=== PATIENT | female | born 1940 | race Caucasian/White ===

== ENCOUNTER 2018-05-23 09:17 | Emergency (ER) | payer MEDICARE ==
[~2018-05-23] VITALS: Ht 165.1 cm; Wt 59.0 kg
[~2018-05-23 09:17] MED LIST: ALBU8HFA2 INH; ALBU90OI6 INH; ALBU90OI61 INH; AZIT250 PO; AZIT500 PO; Amoxicillin500 MG PO; Ativan1 MG SL; CALCAVITD PO; CODGUAEL PO; FLUSAL2505 IH; GUAI600T33 PO; HYDACE5 PO; MULVITMINF PO; OMEP40CA12 PO; PRED20 PO; TIOT18 IH; VALS80 PO
[2018-05-23] MEDS ORDERED: LOSA50 PO (09:34)
[2018-05-23] MEDS ORDERED: FLUT1DIS5 INH (09:35)
[2018-05-23 10:36] LABS: BASOPHILS ABSOLUTE AUTO 0.03 K/mm3 (0.00-0.23); BASOPHILS PERCENT AUTO 1 % (0-2); EOSINOPHILS ABSOLUTE AUTO 0.14 K/mm3 (0.00-0.68); EOSINOPHILS PERCENT AUTO 2 % (0-6); Hematocrit 33.8 % (33.0-51.0); Hemoglobin 11.2 g/dL (11.5-16.0); IMMATURE GRAN ABSOLUTE AUTO 0.02 K/mm3 (0.00-0.10); IMMATURE GRAN PERCENT AUTO 0 % (0-1); LYMPHOCYTES ABSOLUTE AUTO 0.97 K/mm3 (0.84-5.20); LYMPHOCYTES PERCENT AUTO 15 % (21-46); MONOCYTES ABSOLUTE AUTO 1.15 K/mm3 (0.16-1.47); MONOCYTES PERCENT AUTO 17 % (4-13); Mean Corpuscular HGB 30.9 pg (26.0-34.0); Mean Corpuscular HGB Conc 33.1 g/dL (31.5-36.5); Mean Corpuscular Volume 93 fL (80-100); Mean Platelet Volume 10.1 fL (9.1-12.4); NEUTROPHILS ABSOLUTE AUTO 4.29 K/mm3 (1.96-9.15); NEUTROPHILS PERCENT AUTO 65 % (41-73); Platelet Count 247 K/mm3 (150-400); RDW Coefficient Variation 12.4 % (11.7-14.2); Red Blood Cell Count 3.62 M/mm3 (3.80-5.20)
[2018-05-23 10:41] LABS: Alanine Aminotransfer (ALT/SGP 22 U/L (12-78); Albumin, Blood 3.3 g/dL (3.4-5.0); Albumin/Globulin Ratio 0.8 (0.8-1.8); Alk Phos 105 U/L (50-136); Anion Gap 8 mmol/L (6-16); Aspartate Aminotrans (AST/SGOT 15 U/L (12-37); Bilirubin, Total 0.6 mg/dL (0.1-1.0); Blood Urea Nitrogen 7 mg/dL (8-24); Bun/Creatinine Ratio 15.2 (12.0-20.0); CO2, Blood 27 mmol/L (21-32); Calcium, Blood 8.9 mg/dL (8.5-10.1); Chloride, Blood 98 mmol/L (98-108); Creatinine, Blood 0.46 mg/dL (0.40-1.00); Globulin, Blood 4.3 g/dL (2.2-4.0); Glomerular Filtration Rate >60 (60-); Glucose, Blood 100 mg/dL (70-99); Sodium, Blood 133 mmol/L (136-145); Total Protein, Blood 7.6 g/dL (6.4-8.2)
[2018-05-23] MEDS ORDERED: LEVO750 PO (12:24)
[2018-05-23] MEDS ORDERED: Prednisone20 MG PO (12:24)
[2018-06-02] MEDS ORDERED: Zithromax250 MG PO (12:33)
[2018-06-02] MEDS ORDERED: Prednisone20 MG PO ×2 (12:33→12:52)
== END 2018-05-23 12:39 | disposition home or self-care (01) ==
LOC: ER 09:17
PROVIDERS: Emergency Medicine
DX: J44.0 Chronic obstructive pulmonary disease with (acute) lower respiratory infection (principal); J18.9 Pneumonia, unspecified organism; J44.1 Chronic obstructive pulmonary disease with (acute) exacerbation; Z79.899 Other long term (current) drug therapy
CPT/HCPCS: 71046; 80053; 85025; 93005; 93010; 94640; 96374; 99284-25; J2930

== ENCOUNTER 2018-10-22 10:37 | Emergency (ER) | payer OTHER, MEDICARE ==
[~2018-10-22] VITALS: Ht 165.1 cm; Wt 59.0 kg
[~2018-10-22 10:37] MED LIST changes: +FLUT1DIS5 INH; +LEVO750 PO; +LOSA50 PO; +Prednisone20 MG PO; +Zithromax250 MG PO
[2018-10-22] MEDS ORDERED: Norco 5-325 Ta1 EACH PO (11:51)
== END 2018-10-22 12:04 | disposition home or self-care (01) ==
LOC: ER 10:37
DX: S20.212A Contusion of left front wall of thorax, initial encounter (principal); V49.9XXA Car occupant (driver) (passenger) injured in unspecified traffic accident, initial encounter; Z79.899 Other long term (current) drug therapy; Z79.52 Long term (current) use of systemic steroids; J44.9 Chronic obstructive pulmonary disease, unspecified; I48.91 Unspecified atrial fibrillation
CPT/HCPCS: 71046; 99283-25; A9270-GY

== ENCOUNTER → 2020-07-02 | Outpatient (CLI) | payer MEDICARE ==
[~2020-07-02] MED LIST changes: +ALENDRONATE SOD70 MG PO; -CALCAVITD PO; +CALCIUM 500 +1 EAC4 PO; +CLON.5 PO; +ESCI10 PO; +FOSAMAX70 MG PO; +Hair, Skin & N1 EACH PO; +IPRAT-ALBUT 0.5-3 ML INH; -MULVITMINF PO; +Norco 5-325 Ta1 EACH PO; +Prinivil10 MG PO; +WIXELA 250-501 EAC1 INH
== END | disposition home or self-care (01) ==
LOC: LAB SHORT 13:00 → LAB 13:00
DX: J44.1 Chronic obstructive pulmonary disease with (acute) exacerbation (principal)
CPT/HCPCS: 87070; 87077; 87186; 87205

== ENCOUNTER → 2020-09-17 | Outpatient (CLI) | payer MEDICARE | LOC: LAB SHORT 14:15 → LAB 14:15 | DX: R05 Cough (principal) | CPT/HCPCS: 87070; 87205 ==

== ENCOUNTER 2020-10-08 11:06 | Inpatient (IN) | payer MEDICARE ==
[~2020-10-08] VITALS: Ht 165.1 cm; Wt 56.7 kg
[~2020-10-08 11:06] MED LIST changes: -ALENDRONATE SOD70 MG PO; -CLON.5 PO; -ESCI10 PO; -FOSAMAX70 MG PO; -IPRAT-ALBUT 0.5-3 ML INH; -Prinivil10 MG PO; -WIXELA 250-501 EAC1 INH
[2020-10-08 11:33] LABS: BASOPHILS ABSOLUTE AUTO 0.02 K/mm3 (0.00-0.23); BASOPHILS PERCENT AUTO 0 % (0-2); EOSINOPHILS ABSOLUTE AUTO 0.05 K/mm3 (0.00-0.68); EOSINOPHILS PERCENT AUTO 1 % (0-6); Hematocrit 32.7 % (33.0-51.0); Hemoglobin 10.9 g/dL (11.5-16.0); IMMATURE GRAN ABSOLUTE AUTO 0.03 K/mm3 (0.00-0.10); IMMATURE GRAN PERCENT AUTO 0 % (0-1); LYMPHOCYTES ABSOLUTE AUTO 1.12 K/mm3 (0.84-5.20); LYMPHOCYTES PERCENT AUTO 15 % (21-46); MONOCYTES ABSOLUTE AUTO 1.03 K/mm3 (0.16-1.47); MONOCYTES PERCENT AUTO 14 % (4-13); Mean Corpuscular HGB 31.3 pg (26.0-34.0); Mean Corpuscular HGB Conc 33.3 g/dL (31.5-36.5); Mean Corpuscular Volume 94 fL (80-100); Mean Platelet Volume 9.7 fL (9.1-12.4); NEUTROPHILS ABSOLUTE AUTO 5.27 K/mm3 (1.96-9.15); NEUTROPHILS PERCENT AUTO 70 % (41-73); Platelet Count 256 K/mm3 (150-400); RDW Coefficient Variation 12.5 % (11.7-14.2); RDW Standard Deviation 43.3 fL (35.1-46.3); Red Blood Cell Count 3.48 M/mm3 (3.80-5.20); White Blood Cell Count 7.52 K/mm3 (4.00-11.30)
[2020-10-08 11:48] LABS: Alanine Aminotransfer (ALT/SGP 24 U/L (12-78); Albumin, Blood 3.1 g/dL (3.4-5.0); Albumin/Globulin Ratio 0.8 (0.8-1.8); Alk Phos 96 U/L (50-136); Anion Gap 6 mmol/L (6-16); Aspartate Aminotrans (AST/SGOT 17 U/L (12-37); Bilirubin, Total 0.4 mg/dL (0.1-1.0); Blood Urea Nitrogen 13 mg/dL (8-24); CO2, Blood 27 mmol/L (21-32); Chloride, Blood 101 mmol/L (98-108); Creatinine, Blood 0.46 mg/dL (0.40-1.00); Globulin, Blood 3.8 g/dL (2.2-4.0); Glomerular Filtration Rate >60 (60-); Glucose, Blood 107 mg/dL (70-99); Sodium, Blood 134 mmol/L (136-145); Total Protein, Blood 6.9 g/dL (6.4-8.2)
[2020-10-08] MEDS ORDERED: ESCI10 PO (12:29)
[2020-10-08] MEDS ORDERED: CLON.5 PO (12:29)
[2020-10-08] MEDS ORDERED: WIXELA 250-501 EAC1 INH (12:30)
[2020-10-08] MEDS ORDERED: Prinivil10 MG PO (12:30)
[2020-10-08] MEDS ORDERED: IPRAT-ALBUT 0.5-3 ML INH (12:31)
[2020-10-08] MEDS ORDERED: FOSAMAX70 MG PO (12:32)
[2020-10-08 13:45] LABS: Base Excess Venous 0.8 mmol/L; Bicarbonate Venous 24.4 mmol/L (24.0-30.0); PCO2 Venous 48.9 mmHg (38-42); PO2 Venous 49.3 mmHg (38-42); pH Blood Venous 7.34 (7.34-7.37)
--- NOTE | 2020-10-08 17:33 | NUR ---
Echocardiogram performed.
--- NOTE | 2020-10-08 23:53 | NUR ---
STATUS UPDATE THIS RN AND STEPHON OVIEDOA ATTEMPT TO PLACE PT ON BEDPAN, PT BECOMES DYSPNEIC AND GASPING FOR AIR, BRO PAYNE RN AT BEDSIDE, PT BACK ON BIPAP. PT STRUGGLES TO RECOVER, SATS DOWN TO 70% DURING PLACING PT ON BEDPAN WITH PT ON 5 L VIA NC. PT'S BREATHING APPEARS TIGHT, ON AUSCULTATION LITTLE MOVEMENT OF AIR IS HEARD. PT RECOVERS TO 90-94% ON BIPAP. SETTINGS 12/6 AT 40% O2. BACKUP RATE OF 12, CURRENTLY RR 23-28 BPM. SINUS TACH IN 110'S. HUGO RT CALLED TO BEDSIDE FOR TX. THIS RN ADMINS SCHEDULED IV STEROID PER ORDERS. THIS RN DISCUSSES WITH PT NEED FOR STRICT BEDREST AT THIS TIME. STEPHON OVIEDOA ASSIST THIS RN IN PLACING PT IN DEPENDS.
[2020-10-09 04:03] LABS: BASOPHILS PERCENT AUTO 0 % (0-2); EOSINOPHILS PERCENT AUTO 0 % (0-6); Hematocrit 33.1 % (33.0-51.0); Hemoglobin 11.2 g/dL (11.5-16.0); IMMATURE GRAN ABSOLUTE AUTO 0.01 K/mm3 (0.00-0.10); IMMATURE GRAN PERCENT AUTO 0 % (0-1); LYMPHOCYTES ABSOLUTE AUTO 0.47 K/mm3 (0.84-5.20); LYMPHOCYTES PERCENT AUTO 11 % (21-46); MONOCYTES ABSOLUTE AUTO 0.11 K/mm3 (0.16-1.47); MONOCYTES PERCENT AUTO 3 % (4-13); Mean Corpuscular HGB 31.4 pg (26.0-34.0); Mean Corpuscular HGB Conc 33.8 g/dL (31.5-36.5); Mean Corpuscular Volume 93 fL (80-100); Mean Platelet Volume 9.4 fL (9.1-12.4); NEUTROPHILS ABSOLUTE AUTO 3.71 K/mm3 (1.96-9.15); NEUTROPHILS PERCENT AUTO 86 % (41-73); Platelet Count 282 K/mm3 (150-400); RDW Coefficient Variation 12.7 % (11.7-14.2); RDW Standard Deviation 43.2 fL (35.1-46.3); Red Blood Cell Count 3.57 M/mm3 (3.80-5.20)
[2020-10-09 04:28] LABS: Alanine Aminotransfer (ALT/SGP 26 U/L (12-78); Albumin, Blood 3.1 g/dL (3.4-5.0); Albumin/Globulin Ratio 0.8 (0.8-1.8); Alk Phos 91 U/L (50-136); Anion Gap 6 mmol/L (6-16); Aspartate Aminotrans (AST/SGOT 15 U/L (12-37); Bilirubin, Total 0.4 mg/dL (0.1-1.0); Blood Urea Nitrogen 13 mg/dL (8-24); Bun/Creatinine Ratio 29.1 (12.0-20.0); CO2, Blood 28 mmol/L (21-32); Calcium, Blood 8.7 mg/dL (8.5-10.1); Chloride, Blood 99 mmol/L (98-108); Creatinine, Blood 0.45 mg/dL (0.40-1.00); Glomerular Filtration Rate >60 (60-); Glucose, Blood 159 mg/dL (70-99); Sodium, Blood 133 mmol/L (136-145); Total Protein, Blood 7.1 g/dL (6.4-8.2)
--- NOTE | 2020-10-09 05:59 | NUR ---
OFF BIPAP 0515 PT OFF BIPAP PER PT REQUESTS TO TRY NC INSTEAD, GIVEN MOIST SWAB AND SIPS OF WATER, SATS 87-89% ON 5 L VIA NC, WORK OF BREATHING IS LABORED. ACCESSORY MUSCLE USE, LS DIMINISHED T/O. THIS RN STANDS BY WHILE PT USES NC, BREATHING CONTINUES TO APPEAR LABORED. PT APPEARS UNCOMFORTABLE. THIS RN RECCOMENDS REPLACING BIPAP AT THIS TIME DUE TO PT WORK OF BREATHING, PT AGREEABLE. SATS BACK UP TO 93% FOLLOWING BIPAP PLACEMENT. RR 23-28 BPM.
--- NOTE | 2020-10-09 07:56 | NUR ---
SHIFT SUMMARY PT AOX4, BREATHING LABORED T/O SHIFT OFF BIPAP. SPO2 94-96% ON BIPAP /6 AT 40%. PT HELPED UP TO COMMODE ON BIPAP, TOLERATED FAIRLY WELL. ADJUSTED TO 100% WHILE PT IS UP AT COMMODE. SINUS TACH IN LOW 100'S ON TELE. DENIES CP. X2 ORAL SWABS AND SIPS OF WATER OFF BIPAP ON 5 L VIA NC. SATS 87-90% ON NC WHILE OFF BIPAP. IV SALINE LOCKED.
--- NOTE | 2020-10-09 11:02 | NUR ---
PT ALERT AND ORIENTED X4. SLOW TO RESPOND AT TIMES. ON BIPAP AT 12/6 AND 40% THIS AM. RESPIRATORY RATE RANGING FROM 24-38 O2 SATS RANGING FROM 94-95%. LUNGS SOUNDING DIMINSHED THROUGHOUT. ABLE TO TAKE BREAK ON BIPAP WHEN EATING BREAKFAST, TAKING MEDS AND SPEAKING WITH ON PHONE. WHEN ON BREAKS PT IS PLACED ON 5 L O2 AND SATS AT 92%. TELE SHOWING SINUS TACH WITH HR 100-110'S. DENIES CHEST PAIN/PRESSURE. VITAL SIGNS STABLE. BOWEL TONES HEARD. PT REPORTS HISTORY OF URINARY RETENTION, WILL CONTINUE TO MONITOR OUTPUT. DENIES PAIN. ABLE TO TAKE PILLS ONE AT A TIME WITH WATER. CALL LIGHT IN REACH. PT SPOKE WITH ON PHONE THIS MORNING. WILL CONTINUE TO MONITOR.
--- NOTE | 2020-10-09 13:15 | NUR ---
DR. VENTURA IN TO SEE PATIENT. NEW ORDERS FOR BIPAP BREAK AND ABG ONE HOUR POST BIPAP BREAK. BIPAP TAKEN OFF AT 1230. PT SATING AT 92% ON 6L O2. ABG ORDERS FOR 1330. WILL CALL DR. VENTURA WITH RESULTS. NOT MUCH OF AN APPETITE. UP TO BSC WITH 1 PERSON ASSIST ABLE TO VOID. WILL CONTINUE TO MONITOR. SPOKE WITH SARI ON PHONE WITH PATIENTS PERMISSION.
[2020-10-09 13:52] LABS: PCO2 Arterial 41.8 mmHg (35-45); PO2 Arterial 64.8 mmHg (80-100); pH Blood Arterial 7.43 (7.35-7.45)
--- NOTE | 2020-10-09 15:36 | NUR ---
DR. KEE IN TO SEE PATIENT. NEW ORDERS FOR SPUTUM CULTURE AND SPEECH THERAPY. WILL CONTINUE TO MONITOR RESPIRATORY STATUS AND USE BIPAP NEEDED.
--- NOTE | 2020-10-09 17:26 | NUR ---
SHIFT SUMMARY: PT REMAINS ALERT AND ORIENTED. ONE EPISODE THIS SHIFT OF CONFUSION WHEN PATIENT WAS DREAMING. REMAINS ON 5-6L 02 SATING AT 92 WHEN AWAKE. CURRENTLY PATIENT SLEEPING AND SATING AT 94%. DESATS QUICKLY WITH MOVEMENT ABLE TO RECOVER WITHIN 5 MIN. PT STATES SHE FEELS NERVOUS WHEN MOVING. UP TO BSC WITH ASSISTANCE. USING WALKER AND GAIT BELT FOR SAFETY. HX OF URINARY RETENTION. ONE EPISODE OF OUPUT THIS SHIFT. UP TO BSC A SECOND TIME WITH NO OUTPUT. BLADDERSCAN ORDERED PRN AND STRAIGHT CATH FOR 500 OR ABOVE. WILL CONTINUE TO MONITOR URINARY OUTPUT AND BLADDER SCAN. NOT MUCH OF AN APPETITE. BIPAP ON STANDY. USING BIPAP ON AND OFF PATIENT NEEDS. RIGHT HAND IV SALINE LOCKED AND FLUSHING WELL. TELE REMAINS SINUS TACH WITH HR 110'S. DENIES CHEST PAIN/PRESSURE. VITAL SIGNS REMAIN STABLE. BP SLIGHTLY ELEVATED. WILL CONTINUE TO MONITOR AND REPORT OFF.
--- NOTE | 2020-10-09 19:28 | NUR ---
UPDATE: PT COMPLAINING OF ACID RELUX SYMPTOMS. DENIES NEED FOR MEDICATION. NEW ORDERS FOR MAALOX AND PEPCID IF NEEDED. CONCERN FOR ASPIRATION. PATIENT WILL BE NPO UNTIL SPEECH CAN ASSESS TOMORROW. REPORTED OFF TO ONCOMING RN.
--- NOTE | 2020-10-10 07:59 | NUR ---
SUMMARY PT FORGETFUL TONIGHT FIDGETING,PULLING AT LINES, REMOVES 02, BIOX AND IV TUBING.WAS INITIALLY ON AND OFF BIPAP VS N/C HOWEVER BEST FIGURED OUT THAT ASSISTS IN PT COMFORT IS HI FLOW N/C WITH PRONGS PLACED IN MOUTH PT IS MOUTH BREATHER.O2 TURNED UP WHEN OOB FOR BSC, BUT SATS NOT GOING LOW 70 WHICH HAD BEEN PRIOR AND PTS RALLY IS MUCH QUICKER AND MAINTAINING BETWEEN 88-95% WHEN BACK IN BED AT 5-7 L HIFLOW.
--- NOTE | 2020-10-10 13:46 | NUR ---
CARE COORDINATION REFERRAL - ADMIT: 10/08/20 DISCHARGE: DX: SOB CC: [facility] CALL: RESIDENCE: HOME WITH SPOUSE CAREGIVER: DANTE CARRIZALES, SPOUSE / PARTNER, [phone] DX: CHRONIC LUNG DISEASE, HTN, GERD, CEREBRAL ATHEROSCLEROSIS, SEE LIST DME: NEBULIZER, HOME O2 CCM: NONE HOME HEALTH: NONE SUMMARY: 10/10/20- PER CHART REVIEW WITH DR. VENTURA, PT IS NOT MEDICALLY STABLE TO D/C AT THIS TIME. PT SAW THE PT AND THEY ARE RECOMMENDING SNF OR HOME HEALTH IF THE HOUSE HOLD CRITERIA IS MET. PT IS DECONDITIONED AND IS REQUIRING 8L O2 AT THIS TIME. OT HAS ALSO BEEN ORDERED TO WORK WITH THE PT AND ALSO A PALLIATIVE CARE CONSULT.-SAI
--- NOTE | 2020-10-10 17:38 | NUR ---
SUMMARY PT REQUIREING 5 LITER OXYGEN AT REST, OXYGEN INCREASED TO 7 LITERS WITH ACTIVITY. LOOSE COUGH PRODUCTIVE OF MODERATE AMOUNTS GREEN SECRETIONS. PT REPORTS OVERALL IS FEELING BETTER TODAY THAN SHE WAS YESTERDAY. UP TO BEDSIDE COMMODE TO VOID. PT USING FLUTTER VALVE INDEPENDENTLY. PT SLIGHTLY TREMULOUS WHICH NSHE REPORTS IS FROM STEROIDS. PTS FAMILY IN TO VISIT THIS SHIFT AND PER PT THEY CAN ASSIST HER WITH NEEDS POST DISCHARGE
--- NOTE | 2020-10-11 02:40 | NUR ---
CALLED DR MARQUIS REGARDING ELEVATED BP'S WITH NO PRN. ORDER OF HYDRALAZINE Q6 ENTERED IN EMAR.
--- NOTE | 2020-10-11 06:17 | NUR ---
SHIFT SUMMARY PT IS ALERT AND ORIENTED. PT HAS HAD SOME HYPERTENSION. CALLED DR DUE TO PT NOT HAVING A PRN FOR HYPERTENSION. PT IS ON HIFLOW FROM 5-7L NC. THERE HAVE BEEN NO OTHER ACUTE CHANGES. PT'S LUNG SOUNDS SOUND COARSE WITH PRODUCTIVE COUGH. PT DENIES CHEST PAIN. PT IS UP TO BSC FOR 1 ASSIST.
--- NOTE | 2020-10-11 13:35 | NUR ---
DR. VENTURA AT BEDSIDE. DISCUSSED POC. NOTIFIED HIM PATIENT'S SPO2 DROPPED DOWN TO 78% WITH ACTIVITY BUT INCREASES BACK TO 90'S WHEN PATIENT IS TOLD TO TAKE SLOW BREATHS. PATIENT WAS ON 8L O2 VIA HIGH FLOW NC, DR. VENTURA TURNED O2 DOWN TO 5L. PATIENT STATES SHE WEARS UP TO 6L O2 AT HOME. DR. VENTURA ORDERED TRANSFER TO MEDICAL FLOOR WITHOUT TELE.
--- NOTE | 2020-10-11 17:30 | NUR ---
SHIFT SUMMARY: PATIENT A/OX3. ANXIETY AT TIMES. ON 5-9L O2 VIA HIGH FLOW NC. O2 REQUIREMENTS INCREASE WITH ACTIVITY. NO BM TODAY, STATES SHE STILL FEELS COMFORTABLE AND DOES NOT WANT TO TRY ANY BOWEL CARE AT THIS TIME. UP TO BS WITH 1 ASSIST. WORKED WITH PHYSICAL THERAPY TODAY. STATUS CHANGED AND TRANSFERRED TO MED FLOOR WITHOUT TELE. NOTIFIED PATIENT'S , SARI. SARI IS WORRIED ABOUT CARING FOR HER AT HOME HE IS IN A WHEELCHAIR HIMSELF. REPORT WAS GIVEN TO RN ON MEDICAL FLOOR.
--- NOTE | 2020-10-11 17:49 | NUR ---
PT TRASNFERRED TO ROOM 342 AT ABOUT 1730. THIS RN ASSUMED CARE AT THAT TIME. PT IS A/OX4, ANXIOUS WITH TRANSFER R/T SOB WITH EXERTION. PT ON 5L O2 NC WITH O2 AROUND 94%; BIOX IN PLACE. PT ORIENTED TO ROOM AND ASSISTED WITH CALLING TO UPDATE ON ROOM NUMBER. PT STATES SHE DOES NOT FEEL HUNGRY RIGHT NOW BUT MIGHT EAT DINNER LATER. DINNER TRAY AT BEDSIDE. PERSONAL BELONGINGS WITH PT FROM PCU. PT IN BED, HOB ELEVATED AT THIS TIME.
--- NOTE | 2020-10-11 19:29 | NUR ---
REPORT GIVEN TO KI MACK. PATIENT TRANSFERRED TO ROOM 342 AT 1730.
--- NOTE | 2020-10-12 04:16 | NUR ---
SHIFT SUMMARY NO ACUTE CHANGES TO REPORT THIS SHIFT. PT HAS RESTED MOST OF THE NIGHT AND HAS DENIED NEEDS. SATS ABOVE 95% ON 5L. PT HAS PRODUCTIVE COUGH WITH THICK SPUTUM. PT HAS DENIED PAIN OR NEEDS T/O SHIFT. 1 PA TO THE BATHROOM . ASSESSMENT UNCHANGED. BED IN LOWEST POSITION, CALL LIGHT WITHIN REACH.
--- NOTE | 2020-10-12 10:00 | NUR ---
Pt denies pain this morning. She is slightly forgetful, oriented X3. Up to the BSC with standby assist for IV lines. Frequent cough. Medications 1 at a time in applesauce. Will continue to monitor.
--- NOTE | 2020-10-12 18:40 | NUR ---
Shift Summary: Pt alert, oriented this shift. She is very low energy and appears chronically fatigued. She is somewhat grouchy at times. No new orders, pt using call light and up to BSC with 1 person assist. Will continue to monitor until oncoming RN.
--- NOTE | 2020-10-13 00:47 | NUR ---
10/12/20 2155 PT LYING IN BED, REPORTS SOB THAT INCREASES WITH EXERTION, ON O2 NC 10L HUMIDIFIED AT 93%. PRODUCTIVE COUGH-PER PT AND RT SPUTUM IS SMALL AMOUNT, WHITEISH YELLOWISH TANNISH. SLIGHT REDNESS ON BOTTOM THAT IS BLANCHABLE AND NOT OPEN. NO OTHER APPARENT SIGNS OF DISTRESS. CALL LIGHT IS IN REACH.
--- NOTE | 2020-10-13 04:12 | NUR ---
10/12/20 2257 GAVE PT COREG THAT WAS NEWLY ORDERED. NO APPARENT SIGNS OF DISTRESS. PT DENIES NEED FOR ANYTHING AT THIS TIME. CALL LIGHT IS IN REACH. 10/13/20 0000 PT LYING IN BED, EYES CLOSED. APPEARS TO BE RESTING. BREATHING IS EVEN, UNLABORED. NO APPARENT SIGNS OF DISTRESS. CALL LIGHT IS IN REACH.
--- NOTE | 2020-10-13 04:14 | NUR ---
0218 BLADDER SCAN DONE, POST VOID, 488. DISCUSSED WITH PT THE NEED TO DO A STRAIGHT CATH TO EMPTY HER BLADDER. PT DECIDED SHE WANTED TO TRY VOIDING AGAIN FIRST. SHE WAS ABLE TO VOID 125. THAT WOULD LEAVE HER WITH 363 IN HER BLADDER. THE PT AND I DECIDED WITH THAT AMOUNT IT WOULD PROBABLY BE OK TO WAIT AND CHECK ANOTHER BLADDER SCAN IN THE MORNING WITH DAY SHIFT AND NOT DO A STRAIGHT CATH AT THIS TIME. PT WAS VERY HAPPY NOT TO HAVE ONE DONE RIGHT NOW. NO OTHER APPARENT SIGNS OF DISTRESS. CALL LIGHT IS IN REACH.
--- NOTE | 2020-10-13 04:16 | NUR ---
PT LYING IN BED, EYES CLOSED, APPEARS TO BE RESTING. BREATHING IS EVEN, UNLABORED. NO APPARENT SIGNS OF DISTRESS. CALL LIGHT IS IN REACH.
--- NOTE | 2020-10-13 04:43 | NUR ---
PT IS AAO X 4, APPEARS VERY EXHAUSTED. ON 10L O2 NC HUMIDIFIED AT 93%. SOB THAT INCREASES WITH EXERTION. AT ONE POINT RT WAS GOING TO PUT HER ON HIFLOW O2, BUT THE PATIENT APPEARED TO BE DOING OK WITH WHAT SHE HAD ON SO RT AND I JUST CONTINUED TO MONITOR HER. PRODUCTIVE COUGH, SPUTUM IS SMALL AMOUNT THAT IS WHITEISH YELLOWISH TANNISH PER PT AND RT. BOTTOM IS SLIGHTLY RED BUT BLANCHABLE AND NOT OPEN. BLADDER SCAN POST VOID DONE AT 0218, IT WAS 488, PT WANTED TO TRY VOIDING AGAIN BEFORE DOING A STRAIGHT CATH, WAS ABLE TO VOID 125 LEAVING HER WITH 363 IN BLADDER, PT AND I DECIDED TO NOT STRAIGHT CATH AT THIS TIME AND WAIT TO SEE WHAT THE DAY SHIFT BLADDER SCAN SHOWS.
[2020-10-13 05:36] LABS: BASOPHILS ABSOLUTE AUTO 0.01 K/mm3 (0.00-0.23); BASOPHILS PERCENT AUTO 0 % (0-2); EOSINOPHILS PERCENT AUTO 0 % (0-6); Hematocrit 34.8 % (33.0-51.0); Hemoglobin 11.5 g/dL (11.5-16.0); IMMATURE GRAN ABSOLUTE AUTO 0.07 K/mm3 (0.00-0.10); IMMATURE GRAN PERCENT AUTO 1 % (0-1); LYMPHOCYTES ABSOLUTE AUTO 0.56 K/mm3 (0.84-5.20); LYMPHOCYTES PERCENT AUTO 8 % (21-46); MONOCYTES ABSOLUTE AUTO 0.49 K/mm3 (0.16-1.47); MONOCYTES PERCENT AUTO 7 % (4-13); Mean Corpuscular HGB 31.3 pg (26.0-34.0); Mean Corpuscular Volume 95 fL (80-100); Mean Platelet Volume 9.7 fL (9.1-12.4); NEUTROPHILS PERCENT AUTO 84 % (41-73); Platelet Count 323 K/mm3 (150-400); RDW Standard Deviation 44.9 fL (35.1-46.3); Red Blood Cell Count 3.67 M/mm3 (3.80-5.20); White Blood Cell Count 7.03 K/mm3 (4.00-11.30)
[2020-10-13 06:09] LABS: Alanine Aminotransfer (ALT/SGP 30 U/L (12-78); Albumin, Blood 3.2 g/dL (3.4-5.0); Albumin/Globulin Ratio 0.9 (0.8-1.8); Alk Phos 87 U/L (50-136); Anion Gap 5 mmol/L (6-16); Aspartate Aminotrans (AST/SGOT 13 U/L (12-37); Bilirubin, Total 0.6 mg/dL (0.1-1.0); Blood Urea Nitrogen 20 mg/dL (8-24); Bun/Creatinine Ratio 42.9 (12.0-20.0); CO2, Blood 31 mmol/L (21-32); Calcium, Blood 9.5 mg/dL (8.5-10.1); Chloride, Blood 103 mmol/L (98-108); Creatinine, Blood 0.47 mg/dL (0.40-1.00); Globulin, Blood 3.7 g/dL (2.2-4.0); Glomerular Filtration Rate >60 (60-); Glucose, Blood 121 mg/dL (70-99); Potassium, Blood 3.8 mmol/L (3.5-5.5); Sodium, Blood 139 mmol/L (136-145); Total Protein, Blood 6.9 g/dL (6.4-8.2)
--- NOTE | 2020-10-13 07:40 | NUR ---
PT LYING IN BED, AWAKE, NO APPARENT SIGNS OF DISTRESS. DENIES NEED FOR ANYTHING AT THIS TIME. CALL LIGHT IS IN REACH. NO OTHER CHANGES THIS SHIFT.
--- NOTE | 2020-10-13 10:41 | NUR ---
Pt seems very weak this AM, more than the previous day. She refused breakfast, took her meds one at a time in applesauce. RT placed her on Airvo this morning: escalation of care from [place] 6L during the night. Will continue to monitor. Reviewed with Dr. Boyd.
--- NOTE | 2020-10-13 18:06 | NUR ---
Shift Summary: Pt remained alert and oriented thoughout shift. at bedside this afternoon. Pt denies pain. No other concerns. Will report to oncoming RN
--- NOTE | 2020-10-14 06:19 | NUR ---
SHIFT SUMMARY: PATIENT HAS ONLY BEEN ABL TO VOID 75ML OF URINE THIS SHIFT. BLADDER SCAN NOW SHOWS 525 ML PVR, VOIDED 25 ML. PATIENT AGREES TO STRAIGHT CATH.
--- NOTE | 2020-10-14 06:43 | NUR ---
: STRAIGHT CATHED FOR 650 ML OF YOSELIN URINE. TOLERATED WELL.
--- NOTE | 2020-10-14 13:49 | NUR ---
Met pt.lying in bed resting she reports doing fine encouraged pt. and prayed for her.
--- NOTE | 2020-10-14 17:23 | NUR ---
10/14/20- packet created and sent to [facility] for review. Spoke with [facility] and she reports that they are not able to take the pt with her current high needs for O2. They would be willing to take the pt once her O2 needs are at or below 5L. They asked that we hold her packet and send back for review after she has completed more of her antibiotics to see if this improves her oxygen. -chris
--- NOTE | 2020-10-14 18:12 | NUR ---
SHIFT SUMMARY PT A&OX4, ABLE TO MAKE NEEDS KNOWN, IRRITABLE AT TIMES. NO C/O PAIN OR ANY DISCOMFORT THIS SHIFT. PT HAS POOR PO AND FLUID INTAKE, ENCOURAGED TO INCREASE INTAKE SEVERAL TIMES THIS SHIFT. NO RECORDED VOID THIS SHIFT, PT DENIES ANY DYSURIA OR URGE. BLADDER SCAN ORDERED RESULT= 123 ML. PT CONTINUES ON 6LPM O2 VIA NC, SATS >92%. BED AT LOWEST POSITION. CALL LIGHT WITHIN REACH.
--- NOTE | 2020-10-14 18:21 | NUR ---
Spiritual care note: Ángel appeared quite sleepy and frail. She could not stay awake more than a few moments. She nodded 'yes' to prayer. Provided prayer and will remain available to pt and family.
--- NOTE | 2020-10-15 07:35 | NUR ---
SHIFT SUMMARY: PATIENT IS A&OX4, WITHDRAWL, NEEDS MUCH ENCOURAGEMENT FOR PO INTAKE, ATE A BITE OR TWO OF DINNER TRAY BUT DID EAT A WHOLE POPSICLE FOR SNACK! UP TO THE BSC WITH SBA, BED ALARM IS ON FOR SAFETY. PATIENT CONTINUES TO BE UNABLE TO VOID SPONTANIOUSLY MORE THAN 25MLS WHILE BLADDER SCAN SHOWS 389 MLS. PATIENT IS FEELING DISCOURAGED. ORDER IS TO BLADDER SCAN AND STRAIGHT CATH OVER 500ML. PATIENT DESATS IN THE 70'S WITH ACTIVITY REQUIRING AN INCREASE TO 6L NC DURING ACTIVITY.
--- NOTE | 2020-10-15 15:48 | NUR ---
10/15/20- Elijah with palliative care came and updated that he does not feel that pt is able to make her own healthcare decisions. He has spoken with the and let him know that he may end up having to make decisions for her. He would like time to consider putting her on comfort care/hospice. Elijah is going to talk with Dr. Hagen. Received call from Dr. Hagen and he spoke with the about her decline in health. will think about things and will get back to staff regarding her care goals. -chris
--- NOTE | 2020-10-15 16:22 | NUR ---
Pt resting in bed upon arrival. Pt's spouse Harshal is at bedside. PT Biju having conversation with Bill. After Biju leaves this RN remained and engaged in therapeutic conversation regarding goals of care. Pt is withrawn and does not engage in conversation during most of viisit. Provided update on Pt's condition and discussed Pt's inability or unwillingness to engage with therapy and her lack of PO intake. Discussed comfort care and hospice as an option. Educated on comfort care and hospice philosophy. Answered question and offered therapeutic listening. When discussing phone numbers Pt blurts out her home phone number. When this RN asks Pt her thoughts regarding conversation, Pt replies "what conversation". Pt appears to have difficulty with tracking conversation and her understanding is questionable. Pt quickly withdraws back and no longer engages. Discussed the potential with spouse of him ultimately needing to make decisions. Spouse Harshal states "I want her to be comfortable but I need time to think about it". Continue therapeutic listening. Harshal reports concern regarding his ability to care for Pt. He reports having hip issues and is scheduled to have hip surgery. He reports no family or friends available to assist with her care needs. Harshal reports Pt is his second . He has children from a previous marriage but live out of state. Continued therapeutic listening. Harshal expresses appreciation of conversation and reports plan to let staff know of his decision. Provided Palliative Care contact information and instructed Harshal to call with any questions or concerns. Spoke with PT Biju and discussed case. Spoke with Primary RN Tamar and discussed case. Called and spoke with Dr Hagen and discussed case. Spoke with [place] Supervisor Metalizing Corinne and relayed spouse's concerns regarding careneeds. Palliative Care will remain available for supportive and therapeutic visits.
--- NOTE | 2020-10-15 17:01 | NUR ---
SHIFT SUMMARY PT ALERT AND DOES NOT RESPOND AT TIMES. PT VERY POOR ORAL INTAKE AND NO APPETITE. CALLED DR FOR FORESTRY CONTRACTOR CONSULT. DISCUSSED CARE WITH PALLIATIVE CARE ABOUT THE PT BEING WITHDRAWN AND FAILURE TO THRIVE. NO C/O OF PAIN, N&V. TALKED TO DR. PEREZ CATH THE PT X1 WITH 800ML URINE. BED IS IN THE LOWEST POSITION AND CALL LIGHT WITHIN REACH
[2020-10-16] MEDS ORDERED: ALENDRONATE SOD70 MG PO (05:03)
[2020-10-16 05:43] LABS: BASOPHILS ABSOLUTE AUTO 0.02 K/mm3 (0.00-0.23); BASOPHILS PERCENT AUTO 0 % (0-2); EOSINOPHILS ABSOLUTE AUTO 0.02 K/mm3 (0.00-0.68); EOSINOPHILS PERCENT AUTO 0 % (0-6); Hematocrit 38.3 % (33.0-51.0); Hemoglobin 12.4 g/dL (11.5-16.0); IMMATURE GRAN ABSOLUTE AUTO 0.11 K/mm3 (0.00-0.10); IMMATURE GRAN PERCENT AUTO 1 % (0-1); LYMPHOCYTES PERCENT AUTO 17 % (21-46); MONOCYTES ABSOLUTE AUTO 1.38 K/mm3 (0.16-1.47); MONOCYTES PERCENT AUTO 16 % (4-13); Mean Corpuscular HGB 31.4 pg (26.0-34.0); Mean Corpuscular HGB Conc 32.4 g/dL (31.5-36.5); Mean Corpuscular Volume 97 fL (80-100); Mean Platelet Volume 10.2 fL (9.1-12.4); NEUTROPHILS ABSOLUTE AUTO 5.59 K/mm3 (1.96-9.15); NEUTROPHILS PERCENT AUTO 65 % (41-73); Platelet Count 334 K/mm3 (150-400); RDW Standard Deviation 46.3 fL (35.1-46.3); Red Blood Cell Count 3.95 M/mm3 (3.80-5.20); White Blood Cell Count 8.62 K/mm3 (4.00-11.30)
--- NOTE | 2020-10-16 05:48 | NUR ---
SHIFT SUMMARY PT APPEARS TO BE MORE INTERACTIVE THIS EVENING. ANSWERING MOST QUESTIONS ASKED. PT WILL OCCASIONALLY REMAIN SILENT WHEN ASKED A QUESTION AND CLOSE HER EYES. PT WITH FLAT AFFECT. WEAK AND DECONDITIONED. POOR APPETITE. ONLY EATING A FEW BITES OF HER SOUP FOR DINNER AND REFUSING TO EAT ANYTHING FURTHER THROUGH THE NIGHT. PT HAS FREQUENT MOIST COUGH WITH ACTIVE SPUTUM PRODUCTION. SPUTUM IS THIN AND WHITE. PT ON 4 L THROUGH MOST OF THE NIGHT, TURNED UP TO 5 THIS AM AFTER A COUGHING SPELL BRINGING THE PT DOWN INTO THE MID 80'S ON THE 4 L. PT HAS NOT VOIDED THIS EVENING. BLADDER SCAN DONE THIS AM SHOWING ONLY 325 MLS. PT DENIES THE FEELING OF NEEDING TO VOID. PT DENIES ANY PAIN. SLEPT MOST OF THE NIGHT WHEN NOT BEING WOKEN BY COUGHING. VITAL SIGNS STABLE. WILL CONTINUE TO MONITOR AND REPORT TO DAY RN.
[2020-10-16 06:09] LABS: Anion Gap 6 mmol/L (6-16); Blood Urea Nitrogen 29 mg/dL (8-24); Bun/Creatinine Ratio 51.3 (12.0-20.0); CO2, Blood 31 mmol/L (21-32); Calcium, Blood 9.1 mg/dL (8.5-10.1); Chloride, Blood 107 mmol/L (98-108); Creatinine, Blood 0.57 mg/dL (0.40-1.00); Glomerular Filtration Rate >60 (60-); Glucose, Blood 99 mg/dL (70-99); Potassium, Blood 3.4 mmol/L (3.5-5.5); Sodium, Blood 144 mmol/L (136-145)
--- NOTE | 2020-10-16 16:04 | NUR ---
Multiple visits today. This AM Pt still somewhat withdrawn but is more alert. Pt reports remembering conversation that took place yesterday but is not able to elaborate or recall topic of conversation. Pt denies pain at this time. Pt appears lethargic and weak. Ended visit to allow Pt to rest. Reviewed OT and PT assessments and discussed case with Primary RN Dionne. Pt's spouse Harshal arrives to hospital this afternoon. Conversation with this RN, [place] Coater Operator Corinne, and Primary RN Dionne outside of Pt's room. Discussed goals of care and answered questions regarding comfort care and hospice philosophy. Corinne discusses D/C options with hospice ranging from back home to adult foster homes. Corinne will assist spouse by calling to learn prices of adult foster homes and cost for caregivers to come to Pt's home. Spouse Harshal reports he would like to move forward with comfort care and hospice for Pt. Continued therapeutic listening. Called and spoke with Dr Hagen. Placed comfort care order, comfort care order set, and D/C maintenance medications per V/O from Dr Hagen. Continued Pt's B/P medications for comfort. Palliative Care will remain available.
--- NOTE | 2020-10-16 16:58 | NUR ---
10/16/20- MET WITH AND PETER WITH PALLIATIVE CARE TO DISCUSS CARE OPTIONS. HAS DECIDED TO PUT PT ON COMFORT CARE HERE IN THE HOSPITAL AND HAVE THE PT PLACED ON HOSPICE SERVICES ONCE DISCHARGED. WAS PROVIDED NAMES OF AGENCIES TO CHOSE FROM, HE HAS NOT MADE A CHOICE YET. DISCUSSED CARE OPTIONS FOR PT AND WOULD LIKE TO KNOW HOW MUCH IT WOULD COST TO HIRE CAREGIVERS TO COME IN THE HOME VS PT GOING INTO AN ADULT FOSTER CORRECTION. CALLED LOCAL CAREGIVER AGENCIES FOR COST. ALSO CALLED [facility] DEPT IN THE HOSPITAL TO HELP SIGN UP FOR MEDICAID BENEFITS. SHE WILL REACH OUT TO HIM TOMORROW. WILL UPDATE TOMORROW WITH COSTS TO HELP MAKE CARE DECISIONS. -SAI
--- NOTE | 2020-10-16 17:04 | NUR ---
SHIFT SUMMARY PT AxOx2-3 WITH SIGNIFICANTLY EMOTIONAL WITHDRAWN BEHAVIOR. PT IN FOR VISIT TODAY, AND MET WITH PALLIATIVE CARE AND SENIOR QA AUTOMATION ENGINEER, MAKING DECISION TO TRANSITION TO COMFORT CARE. DR ENGLAND NOTIFIED AND COMFORT CARE ORDERS PLACED. PT HAD SPEECH EVAL TODAY AND SWALLOW PRECAUTIONS ADJUSTED. PT IS EATING/DRINKING VERY POORLY AND NOT TOLERATING TAKING PILLS WELL. NEW ORDERS FOR MEDS CRUSHED IN APPLESAUCE. PT VOIDED x1 TODAY. PT DECLINED PHYSICAL THERAPY AND ONLY DID ARM EXERCISES FOR OT. PT DECLINED GETTING UP TO BSC OR CHAIR FOR MEALS THIS SHIFT. PT REQUESTED BED CHRISTINE FOR URINATING. PT CURRENTLY RESTING IN BED WITH CALL LIGHT IN REACH. PT BREATHING COMFORTABLY ON 4L O2 VIA NC. PER PALLIATIVE CARE, PT WILL REMAIN ON CARDIAC MEDS AND SCHEDULED VITALS WHILE ON COMFORT CARE BECAUSE SHE IS NOT IMMINENT AT THIS TIME. CARE TEAM WORKING ON SAFE DC. VITALS REVIEWED. PT DENIES ANY NEEDS AT THIS TIME.
--- NOTE | 2020-10-16 22:37 | NUR ---
OLIGURIA PT HAS NOT VOIDED. SHE HAS CATHETER ORDER NEEDED FOR COMFORT. SHE IS REFUSING CATHETER PLACEMENT AT THIS TIME. WILL CONTINUE TO ASSESS COMFORT.
--- NOTE | 2020-10-17 00:59 | NUR ---
STRAIGHT CATH PT DOES NOT WANT WHAT SHE CALLS A "FULL CATHETER" AND STATES THAT SHE ONLY WANTS TO BE STRAIGHT CATH. PT STILL UNABLE TO VOID SINCE LAST SCAN. SHE REPORTS FEELING UNCOMFORTABLE. DR. MARCUS CALLED AND NOTIFIED. RECEIVED ORDER FOR STRAIGHT CATH. STRAIGHT CATH DONE. 700 MLS OF URINE OBTAINED.
--- NOTE | 2020-10-17 04:16 | NUR ---
SHIFT SUMMARY NO ACUTE CHANGES TO REPORT THIS SHIFT. PT COMFORT CARE MEASURES, SHE HAS DENIED PAIN THROUGHOUT THE NIGHT. PT CONTINUE TO RETAIN, STRAIGHT CATH X1 THIS SHIFT 700 MLS OF URINE OBTAINED. PT TRIED TO USE THE URINAL BUT WAS UNSUCESSFUL STATING THAT SHE DID NOT FEEL THE URGE TO GO. PT HAD A LARGE BM THIS SHIFT. PT SLEEPS MOST OF THE NIGHT BUT AWAKES TO VERBAL STIMULI AND ANSWERS QUESTIONS APPROPRIATELY. NO CALLS OR VISITS FROM FAMILY THIS SHIFT. COMFORT ASSESSED T/O SHIFT. BED IN LOWEST POSITION, CALL LIGHT WITHIN REACH.
--- NOTE | 2020-10-17 08:00 | NUR ---
PLEASANT ALERT ORIENTED TO SELF AND SOME HISTORY. DENIES PAIN. IS COMFORT CARE. OFFERED FLUIDS. DID TAKE SOME. 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 STATES HUSB AT HOME. NO NEW CONCERNS NOTED. BED IN LOW POSITION, CALL LITE IN REACH, CALLS APPROP
--- NOTE | 2020-10-17 10:40 | NUR ---
10/17/20 - SPOKE WITH OVER THE PHONE, HE STATES THAT HE WOULD LIKE USE [facility]. HE WOULD LIKE HER TO COME HOME WITH CAREGIVERS. PROVIDED CONTACT INFORMATION FOR NEW HORIZONS SO HE CAN DISCUSS CARE AND COSTS. UPDATED ELENA WITH [facility] OF 'S DECISION. SHE WILL START PROCESS TO TAKE HER ON SERVICE. -SAI
--- NOTE | 2020-10-17 14:00 | NUR ---
STOPPED TO SEE PT. PT REQUESTED WATER, GAVE SOME THICKENED WATER. PT ZORAN WELL. REQUESTED POPCICLE. ORANGE. BROUGHT TO HER. SHE ATE AND IS PLEASED. TALKING SOME. REMAINS PLEASANT
--- NOTE | 2020-10-17 18:07 | NUR ---
PT PLEASANT TODAY. DID PERK UP SOME. TALKING SOME ABOUT FAMILY AND CAREER. DID EAT POPCICLE AND ICECREAM TODAY. NO NEW CONCERNS NOTED. HAS BEEN ON PHONE TO FAMILY ALSO. BED IN LOW POSITION, ALL LITE IN REACH, CALLS APPROP
--- NOTE | 2020-10-18 04:57 | NUR ---
EXPERIMENTAL TECHNICIAN SUMMARY PT SLEPT WELL TONIGHT. DENIED PAIN, NO SIGNS OF SOB NOTED. BLADDER SCAN OF 665ML THISM MORNING AT 0430. PT AGREED TO BEING STRAIGHT CATHED. PT'S CHOICE NOT TO HAVE COLEY BUT WOULD LIKE TO BE STAIGHT CATHED. STRAIGHT CATHED WITH 500ML OUTPUT. CURRENTLY ASLEEP. COMFORT CARE MEASURES PROVIDED THROUGHOUT THE NIGHT. CALL LIGHT WITHIN REACH. PRN AT BEDSIDE, PT SELF SUCTIONS. BED ALARM ON.
--- NOTE | 2020-10-18 17:19 | NUR ---
PT HAS BEEN VERY QUIET TODAY. PT WAS ABLE TO TAKE MEDIATIONS CRUSHED WITH APPPLESAUCE, BUT COUGHS A BIT ON NECTAR THICK LIQUIDS. PT NOT WANTIING TO EAT AND DENIES PAIN. PT HAS TAKEN MULTIPLE NAPS TODAY. CALL LIGHT IS WITHIN REACH. WILL CONTINUE TO MONITOR.
--- NOTE | 2020-10-19 06:28 | NUR ---
SUMMARY NO CHANGES. PT TX FOR SHOULDER PAIN PER EMAR W/ RELIEF. PT BLADDER SCAN SHOWED SCANT AMOUNT, NO STRIGHT CATH NEEDED. PT SLEPT T/O SHIFT W/O ISSUE. CALL LIGHT IN REACH.
--- NOTE | 2020-10-20 08:45 | NUR ---
[facility] comfort care visit - Call received from pt's RN with report of change in condition and request to reeval medications ordered. Consulted with RN and RT and assessed pt. She is too somnolent and not alert enough to safely swallow PO medications. She is not able to follow commands for respiratory scheduled inhalers. T/c with report to and VO received and entered for change to SL/NC/topical medications. Case conferenced later in day with , Care Management and Rosa anderson dc plan for if pt stable for d/c. Plan formulated with Rosa to assess and report progression daily to assist with d/c plan. was updated on change of condition, pt not taking in PO food and fluids, not interacting with staff and in general a large change noted since yesterday by her nurse who had her both days. Pt asleep and did not wake, even while RT providing treatment. She appears comfortable and not in resp distress at this time.
--- NOTE | 2020-10-20 14:42 | NUR ---
Pt. is lying in bed resting ,doing much better prayed for the pt.
--- NOTE | 2020-10-20 17:34 | NUR ---
Spiritual care note: No family present at time of visit. Mrs. Sifuentes was non-responsive to voice or touch. Mouth open, breaths even. she appears to be comfortable and nearing end of life. Periry placed in pt's hand and prayer provided. I will remain available to family.
--- NOTE | 2020-10-20 18:04 | NUR ---
PT HAS BEEN UNREPSONSIVE ALL DAY. PT KEPT COMFORTABLE AND TURNED Q 2 HRS. WILL CONTINUE TO MONITOR.
--- NOTE | 2020-10-21 03:34 | NUR ---
SUMMARY PT REMAINS COMFORTABLE. PT REPOSITIONED AND CHANGED NEEDED. WCTM.
--- NOTE | 2020-10-21 09:29 | NUR ---
[facility] C[facility] COMFORT CARE VISIT AND CASE CONF WITH RN - at side of bed. Pt does not respond to me but did turn her head towards her when he arrived, he states. She was not able to talk or open her eyes to him. She appears restless and he reports her unsuccessful attempts at purposeful mvmt, to scratch or rub her face. Pt lying flat with knees up, swaying. she has O2 on. Case conferenced with RN re: current meds and s/s management. IV due to be d/c'd. IV antiemetic d/c'd and [place] phenergan and [place] tylenol added to comfort care medication set. RN to give either lowest dose of Roxanol or ativan SL prn for nonverbal indicators of pain/anxiety noted. Discussed d/c plan for with after he inquired about that and in general "what next?" I explained that our goal would be to support Ángel and keep her comfortable while in the hospital and reassess daily for ability to transfer. He accepted that we may not be able to transfer pt home if she is transitioning or moving through the dying process quickly when comes. I left message for Anjelica Zamora, port drier, that was at bedside per his request. Plan daily visits.
--- NOTE | 2020-10-21 09:47 | NUR ---
PT RESTING IN BED, AT THE BEDSIDE FOR VISIT, PT IS SOMEWHAT RESTLESS AT THIS TIME
--- NOTE | 2020-10-21 09:49 | NUR ---
PT MEDICATED FOR PAIN AND ANXIETY AT THIS TIME, SPECIAL LOAN OFFICER GIVING BED BATH AT THIS TIME
--- NOTE | 2020-10-21 12:35 | NUR ---
PT APPEARS TO BE RESTING COMFORTABLY AT THIS TIME, WILL CONTINUE TO MONITOR AND ASSESS FOR CHANGES
--- NOTE | 2020-10-21 14:30 | NUR ---
Pt. is lying in bed resting prayed for her and blessed pt.
--- NOTE | 2020-10-21 14:34 | NUR ---
ROXINOL GIVEN EARLIER FOR PAIN. THE PT APPEARS TO BE COMFORTABLE AT THIS TIME
--- NOTE | 2020-10-21 15:30 | NUR ---
F/u [facility] comfort care visit made this afternoon. Pt's is no longer at bedside. Pt is unresponsive to voice or light touch. She is not demonstrating any nonverbal indicators of pain, air hunger, anxiety or distress at this time. She has been medicated per eMAR for dyspnea, restlessnes and pain and appears much more comfortable than she did this am. Audible upper airway secretions noted. Assessment and POC discussed with RN.
--- NOTE | 2020-10-21 18:06 | NUR ---
PT APPEARS TO BE RESTING COMFORTABLY AT THIS TIME, APPEARS TO BE SLEEPING. THE PT IS NOT AWAKE ENOUGH AT THIS TIME TO TAKE PO NUTRITION, THE PT IS ON 4L/MIN O2 VIA NC. BLADDER SCAN THIS AFTERNOON ONLY SHOWED 27 CC, THE PTS WAS IN TO SEE HER THIS AM
--- NOTE | 2020-10-21 18:59 | NUR ---
Spiritual care note: Ángel appears to be nearing end-of-life. She was not responsive to voice or touch, breaths even, but shallow. She seems quite frail, but comfortable and well cared-for by nursing. Provided prayer at bedside and will remain available to family.
--- NOTE | 2020-10-22 04:07 | NUR ---
SHIFT SUMMARY PT MOSTLY UNRESPONSIVE THIS EVENING. SLEEPING THROUGHOUT THE SHIFT. PT DID NOT APPEAR RESTLESS AND HAD NO NON VERBAL S/S OF PAIN. VERY LITTLE OUTPUT THIS EVENING. PT NOT EATING OR DRINKING. BREATHING IS SHALLOW AND UNLABORED. NO FAMILY IN THIS EVENING. PT RESTING COMFORTABLY. NO ACUTE CHANGES THIS EVENING.
--- NOTE | 2020-10-22 08:09 | NUR ---
PT APPEARS COMFORTABLE, ATROPIN GIVEN FOR SECRETIONS, WILL CONTINUE TO MONITOR
--- NOTE | 2020-10-22 11:30 | NUR ---
Pt appears to be progressing with continued unresponsiveness and no PO intake. She has increased resp effort that is beginning to appear agonal with shallow, ineffective resp effort. No family at bedside at the time of my visit earlier. Case conferenced with pt's RN and discussed plan of care, giving medication per eMAR for increased work of breathing noted. Report on my assessment provided to and social service liaison. I do not believe transport home with and hospice will be possible tomorrow without risk of pt's demise during transport or shortly thereafter.
--- NOTE | 2020-10-22 11:47 | NUR ---
PTS IS AT THE BEDSIDE TEARFULL, PT HAS AUDIABLE SECRETIONS, ATROPINE GIVEN, PT REPOSITIONED. PT APPEARS TO BE COMFORTABLE
--- NOTE | 2020-10-22 11:49 | NUR ---
PTS BREATHING IS LABOERED USEING ASSESORY MUSCLES, GAVE ATIVAN AND ROXINAL AT THIS TIME, WILL CONTINUE TO MONITOR FOR CHANGES
--- NOTE | 2020-10-22 14:21 | NUR ---
PT PASSED AT 1355 IT WAS CONFIRMED THAT THE PT HAD , THE [employer] WAS NOTIFIED TO CONFIRM, DR. VILLAGOMEZ WAS NOTIFIED, PALLIATIVE CARE WAS NOTIFIED AND MADE THE CALL TO THE PT'S
--- NOTE | 2020-10-22 14:22 | NUR ---
MARY visit and call to pt's made. Information obtained on home in [place] that he would like contacted and this was provided to electrical discharge machine operator. did not want to return to the hospital.
--- NOTE | 2020-10-22 18:42 | NUR ---
Spiritual care note: I sat with Ángel several times throughout this day. I kept missing spouse. She appeared to be very near end-of-life, totally non-responsive, and well cared-for by nursing.
== END 2020-10-22 13:55 | DRG 189 ==
LOC: ER 11:06 → PCU 15:02 → ERHOLD 15:02 → PCU 18:58 → MEDS 10-11 17:33
PROVIDERS: Emergency Medicine; Internal Medicine; ADMIT Internal Medicine
PROC: 5A09357 Assistance with Respiratory Ventilation, Less than 24 Consecutive Hours, Continuous Positive Airway Pressure (ICD-10-PCS; principal; 2020-10-08)
DX: J96.21 Acute and chronic respiratory failure with hypoxia (principal); G93.41 Metabolic encephalopathy; I10 Essential (primary) hypertension; R33.9 Retention of urine, unspecified; Z51.5 Encounter for palliative care; Z88.1 Allergy status to other antibiotic agents; J43.9 Emphysema, unspecified; Z88.8 Allergy status to other drugs, medicaments and biological substances; Z79.899 Other long term (current) drug therapy; F41.8 Other specified anxiety disorders; Z66 Do not resuscitate
CPT/HCPCS: 36415; 36600; 51701; 71045; 80048; 80053; 82803; 82947; 83880; 84484; 85025; 87040; 92526; 92610; 93005; 93010; 93306; 94640; 94660; 94664; 94667; 94668; 94760; 94762; 96365; 96366; 96368; 96375; 97110; 97162; 97166; 97530; 99285-25; A9270; J0360; J0456; J0696; J1644; J2920; J2930; J7050; J7512